=== PATIENT | female | born 1950 | race Hispanic/Latino ===

== ENCOUNTER 2017-04-27 10:46 | Emergency (ER) | payer MEDICARE, OTHER ==
[~2017-04-27] VITALS: Ht 157.5 cm; Wt 69.0 kg
[~2017-04-27 10:46] MED LIST: ADLT ASA LOW81 MG PO; CIPROFLOXACN500 MG PO; CYCLOBENZAPR10 MG PO; LIPITOR20 MG PO; LOSARTAN POT100 MG PO; METRONIDAZOL500 MG PO; PANTOPRAZOLE SO40 M1 PO; SIMVASTATIN20 MG PO; TRAMADOL HCL50 MG PO; ZOFRAN ODT4 MG PO
[2017-04-27] MEDS ORDERED: NAPROSYN500 MG PO (12:28)
[2017-04-27 12:44] VITALS: BP 159/83
== END 2017-04-27 12:45 | disposition home or self-care (01) ==
LOC: ED 10:46
DX: M19.011 Primary osteoarthritis, right shoulder (principal); M65.811 Other synovitis and tenosynovitis, right shoulder

== ENCOUNTER 2017-07-28 19:37 | Emergency (ER) | payer MEDICARE, MEDICAID ==
[~2017-07-28] VITALS: Ht 157.5 cm; Wt 70.6 kg
[~2017-07-28 19:37] MED LIST changes: +NAPROSYN500 MG PO
[2017-07-28] MEDS ORDERED: PERCOCET 5/325M1 TAB PO (20:41)
[2017-07-28] MEDS ORDERED: AMOXICILLIN500 MG PO (20:41)
[2017-07-28 21:00] VITALS: BP 138/80
== END 2017-07-28 21:00 | disposition home or self-care (01) ==
LOC: ED 19:37
DX: K08.89 Other specified disorders of teeth and supporting structures (principal); K02.9 Dental caries, unspecified; M25.48 Effusion, other site

== ENCOUNTER 2019-10-20 | Emergency (ER) | payer MEDICARE, MEDICAID ==
[~2019-10-20] MED LIST changes: +AMOXICILLIN500 MG PO; +PERCOCET 5/325M1 TAB PO
[2019-10-20] MEDS ORDERED: HYZAAR1 TA2 PO (19:42)
[2019-10-20] MEDS ORDERED: OMEPRAZOLE DR40 MG PO (19:42)
[2019-10-20] MEDS ORDERED: ROSUVASTATIN CA40 MG PO (19:42)
[2019-10-20] MEDS ORDERED: VOLTAREN - GENE75 MG PO (21:35)
== END 2019-10-20 21:42 | disposition home or self-care (01) ==
DX: M54.2 Cervicalgia (principal); I10 Essential (primary) hypertension; M19.90 Unspecified osteoarthritis, unspecified site

== ENCOUNTER 2019-10-29 | Emergency (ER) | payer MEDICARE, MEDICAID ==
[~2019-10-29] MED LIST changes: +HYZAAR1 TA2 PO; +OMEPRAZOLE DR40 MG PO; +ROSUVASTATIN CA40 MG PO; +VOLTAREN - GENE75 MG PO
[2019-10-29] MEDS ORDERED: CYCLOBENZAPR5 MG PO (18:50)
== END 2019-10-29 21:15 | disposition home or self-care (01) ==
DX: M47.812 Spondylosis without myelopathy or radiculopathy, cervical region (principal); I10 Essential (primary) hypertension
CPT/HCPCS: L0120

== ENCOUNTER 2022-04-01 09:42 | Observation (INO) | payer MEDICARE, MEDICAID ==
[2022-04-01] VITALS (12 sets, daily range): BP systolic 112–175; BP diastolic 52–105
[~2022-04-01] VITALS: Ht 154.9 cm; Wt 72.7 kg
[~2022-04-01 09:42] MED LIST changes: +CYCLOBENZAPR5 MG PO
--- NOTE | 2022-04-01 09:42 | NUR ---
PT AMBUALTORY TO ROOM DAUGHTER AT BEDSIDE
[2022-04-01 10:10] LABS: HEMATOCRIT 43.2 % (37.0-47.0); HEMOGLOBIN 13.8 g/dl (12.0-16.0); MEAN CORPUSCULAR HGB CONC 31.9 g/dL CAL (32.0-36.0); NEUT# 3.69 thou/uL (2.00-7.15); RED BLOOD COUNT 4.45 mill/uL (4.20-5.60); RED CELL DISTRI WIDTH 13.1 % (11.5-15.5)
[2022-04-01 10:19] LABS: MEAN CELL VOLUME 97.1 fL CALC (80.0-100.0)
[2022-04-01] MEDS ORDERED: FLEXERIL5 M1 PO (10:19)
[2022-04-01] MEDS ORDERED: DICLOFENAC SODI75 M1 PO (10:20)
[2022-04-01] MEDS ORDERED: LATANOPROST0.005 % OU (10:20)
--- NOTE | 2022-04-01 10:30 | NUR ---
Reassessment of patient completed. No distress noted.
[2022-04-01 10:53] LABS: ALBUMIN 3.9 g/dL (3.2-5.0); ALKALINE PHOSPHATASE 96 u/l (38-126); BILIRUBIN, TOTAL 0.7 mg/dL (0.0-1.4); BUN 18 mg/dL (8-23); BUN/CREATININE RATIO 17 (12-20 (CALC)); CHLORIDE 105 mmol/l (95-108); GFR FOR AFR.AMER. > 60 ML/MIN (>=60 (CALC)); GFR OTHER RACES 55 ML/MIN (>=60 (CALC)); POTASSIUM 3.5 mmol/l (3.5-5.1); SGOT/AST 33 u/l (9-36); TOTAL PROTEIN 7.4 g/dL (6.3-8.2)
[2022-04-01 10:54] LABS: ANION GAP 8 (6-22 (CALC)); CARBON DIOXIDE 29 mmol/l (22-30); SODIUM 138 mmol/l (137-146)
--- NOTE | 2022-04-01 11:30 | NUR ---
Reassessment of patient completed. No distress noted.
--- NOTE | 2022-04-01 12:30 | NUR ---
Reassessment of patient completed. No distress noted.
--- NOTE | 2022-04-01 13:45 | NUR ---
PT BROUGHT TO MED SURG 270. REPORT GIVEN AT BEDSIDE TO BOONE PALMER
[2022-04-01] MEDS ORDERED: HYDROCHLOROT25 MG PO (14:38)
[2022-04-01] MEDS ORDERED: METOPROLOL SUCC50 MG PO (14:39)
[2022-04-01] MEDS ORDERED: LIPITOR80 M1 PO (14:40)
[2022-04-01] MEDS ORDERED: ASPIRIN 81 LOW81 MG PO (14:41)
[2022-04-01] MEDS ORDERED: VITAMIN B-12500 MC1 PO (14:43)
[2022-04-01] MEDS ORDERED: VITAMIN D-31000 UNI1 PO (14:44)
--- NOTE | 2022-04-01 15:44 | NUR ---
PT ARRIVED ON UNIT @ 1355 TRANSPORTED VIA W/C BY ED STAFF. ALERT AND ORIENTED X 4, NO C/O DISCOMFORT AT THIS TIME, ORIENTED TO ROOM AND CALL MITCHELL, INFORMED/EDUCATED ON FALL PRECAUTIONS AND STATED UNDERSTANDING. BEDSIDE REPORT RECEIVED FROM ED STAFF MANUEL MONTGOMERY SETTLED IN BED, IMMEDIATE NEEDS ADDRESSED, WILL CONTINUE TO MONITOR.
--- NOTE | 2022-04-01 19:55 | NUR ---
PATIENT ALERT AND ORIENTED. KYRGYZ SPEAKING. FOOD COUNTER ATTENDANT PRESENT. ASSESSMENT COMPLETE. NO COMPLAINTS OF CHEST PAIN OR PAIN IN GENERAL. NO SIGNS OF DISTRESS. ABLE TO MAKE NEEDS KNOWN. BED IN LOW POSITION. CALL MITCHELL IN REACH.
--- NOTE | 2022-04-02 00:06 | NUR ---
PATIENT RESTING IN BED ON HER LEFT SIDE. NO COMPLAINTS OF CHEST PAIN. NO SIGNS OF DISTRESS NOTED. CALL MITCHELL REMAINS IN REACH.
[2022-04-02 00:25] VITALS: BP 136/50
--- NOTE | 2022-04-02 04:05 | NUR ---
PATIENT RESTING IN BED. NO COMPLAINTS VOICED AT THIS TIME. CALL LIGHT AND BELONGINGS WITHIN REACH. BED REMAINS IN LOW POSITION.
[2022-04-02 04:33] VITALS: BP 110/54
[2022-04-02 06:52] VITALS: BP 127/50
--- NOTE | 2022-04-02 07:00 | NUR ---
REPORT RECIEVED FROM MANAGER OF MERCHANDISINGSIDE SEAM ENVELOPE MACHINE OPERATOR
--- NOTE | 2022-04-02 07:39 | NUR ---
PT AWAKE UPON ENTERING ROOM. STATES NO FEELING OS CHEST PAIN/NV/SOB. STATES FEELING BETTER. IV 20RAC INFUSING IVF PER EMAR. ASSESSMENT ALLOWED. FAMILY MEMBER AT BEDSIDE. PT IS MAORI SPEAKING ONLY. A&OX3. FALL/SAFTEY PRECAUTION IN PLACE. CALL LIGHT WITHIN REACH.
[2022-04-02 10:05] VITALS: BP 125/56
--- NOTE | 2022-04-02 11:51 | NUR ---
Patient is screened for PT intervention and no needs are identified at this time
--- NOTE | 2022-04-02 12:31 | NUR ---
PT EATING LUNCH. NO DISTRESS NOTED. STATES NO NEEDS AT THIS TIME. FALL/SAFETY PRECAUTION IN PLACE. Call light within reach
[2022-04-02 14:50] VITALS: BP 122/68
--- NOTE | 2022-04-02 16:26 | NUR ---
Discharge instructions given. Patient verbalizes understanding of same. Discharged in stable condition via Wheelchair to Home with staff. All belongings sent with pt.
== END 2022-04-02 16:26 | disposition home or self-care (01) ==
LOC: ED 09:42 → ED-I 11:16 → ED 11:16 → MS2 11:24
PROVIDERS: Family Medicine; ADMIT Hospitalist; ATTEND Hospitalist
DX: R07.9 Chest pain, unspecified (principal); I10 Essential (primary) hypertension; Z91.11 Patient's noncompliance with dietary regimen; Z20.822 Contact with and (suspected) exposure to COVID-19
CPT/HCPCS: J1650

== ENCOUNTER 2022-06-09 10:11 | Emergency (ER) | payer MEDICARE, MEDICAID ==
[~2022-06-09] VITALS: Ht 154.9 cm; Wt 72.0 kg
[~2022-06-09 10:11] MED LIST changes: +ASPIRIN 81 LOW81 MG PO; +DICLOFENAC SODI75 M1 PO; +FLEXERIL5 M1 PO; +HYDROCHLOROT25 MG PO; +LATANOPROST0.005 % OU; +LIPITOR80 M1 PO; +METOPROLOL SUCC50 MG PO; +VITAMIN B-12500 MC1 PO; +VITAMIN D-31000 UNI1 PO
[2022-06-09 10:22] VITALS: BP 144/72
[2022-06-09 10:30] VITALS: BP 146/75
[2022-06-09 11:03] VITALS: BP 144/77
[2022-06-09 11:31] VITALS: BP 113/66
[2022-06-09 11:35] LABS: GFR FOR AFR.AMER. > 60 ML/MIN (>=60 (CALC)); GFR OTHER RACES > 60 ML/MIN (>=60 (CALC))
[2022-06-09 11:53] LABS: ALKALINE PHOSPHATASE 128 u/l (38-126); ANION GAP 15 (6-22 (CALC)); BUN 18 mg/dL (8-23); BUN/CREATININE RATIO 21 (12-20 (CALC)); CARBON DIOXIDE 29 mmol/l (22-30); CHLORIDE 101 mmol/l (95-108); CREATININE 0.8 mg/dL (0.5-1.0); GFR FOR AFR.AMER. > 60 ML/MIN (>=60 (CALC)); GFR OTHER RACES > 60 ML/MIN (>=60 (CALC)); POTASSIUM 4.2 mmol/l (3.5-5.1); SGOT/AST 43 u/l (9-36); SODIUM 141 mmol/l (137-146); TOTAL PROTEIN 8.7 g/dL (6.3-8.2)
[2022-06-09 11:55] LABS: HEMATOCRIT 44.9 % (37.0-47.0); HEMOGLOBIN 15.3 g/dl (12.0-16.0); IMMATURE GRANULOCYTES 0.2 % (0.0-5.0); MEAN CORPUSCULAR HGB 31.4 pG CALC (26.0-32.0); MEAN CORPUSCULAR HGB CONC 34.1 g/dL CAL (32.0-36.0); NEUT# 9.8 thou/uL (2.00-7.15); RED BLOOD COUNT 4.88 mill/uL (4.20-5.60); RED CELL DISTRI WIDTH 12.6 % (11.5-15.5)
[2022-06-09 11:59] LABS: ALBUMIN 4.9 g/dL (3.2-5.0)
[2022-06-09] MEDS ORDERED: MOTRIN400 MG/TAB PO ×2 (13:20→13:41)
[2022-06-09] MEDS ORDERED: TRAMADOL HYDROC50 M1 PO ×2 (13:20→13:41)
[2022-06-09] MEDS ORDERED: DOXY-CAPS100 MG PO ×2 (13:20→13:41)
== END 2022-06-09 13:50 | disposition home or self-care (01) ==
LOC: ED 10:11
PROVIDERS: Family Medicine
DX: M54.6 Pain in thoracic spine (principal); M54.50 Low back pain, unspecified; J18.9 Pneumonia, unspecified organism; I10 Essential (primary) hypertension; E78.00 Pure hypercholesterolemia, unspecified
CPT/HCPCS: Q9967

== ENCOUNTER 2023-05-15 05:40 | Observation (INO) | payer MEDICARE, MEDICAID ==
[2023-05-15] VITALS (25 sets, daily range): BP systolic 132–190; BP diastolic 57–93
[~2023-05-15] VITALS: Ht 154.9 cm; Wt 70.0 kg
[~2023-05-15 05:40] MED LIST changes: +DOXY-CAPS100 MG PO; +MOTRIN400 MG/TAB PO; +TRAMADOL HYDROC50 M1 PO
--- NOTE | 2023-05-15 05:42 | NUR ---
PT AMBULATED TO RM 14 W/ STEADY GAIT. DAUGHTERS BEDSIDE
--- NOTE | 2023-05-15 06:00 | NUR ---
PT VOMITED X 1. MD AWARE
[2023-05-15 06:20] LABS: BASO% 0.6 % (0-3); EOS% 7.4 % (0-8); HEMATOCRIT 44.9 % (37.0-47.0); HEMOGLOBIN 14.4 g/dl (12.0-16.0); MEAN CELL VOLUME 93.3 fL CALC (80.0-100.0); MEAN CORPUSCULAR HGB 29.9 pG CALC (26.0-32.0); MEAN CORPUSCULAR HGB CONC 32.1 g/dL CAL (32.0-36.0); MONO% 6.8 % (2-13); NEUT# 3.24 thou/uL (2.00-7.15); NEUT% 52.2 % (42-76); RED BLOOD COUNT 4.81 mill/uL (4.20-5.60); RED CELL DISTRI WIDTH 12.7 % (11.5-15.5)
[2023-05-15] MEDS ORDERED: HYDROXYCHLOR200 MG PO (06:27)
[2023-05-15] MEDS ORDERED: COZAAR50 MG PO (06:28)
[2023-05-15] MEDS ORDERED: CRESTOR5 MG PO (06:30)
--- NOTE | 2023-05-15 06:31 | NUR ---
PT RESTING IN BED. RESP EVEN AND UNLABORED. AWAKE AND ALERT. MEDICATED PER MD ORDERS FOR N/V AND DIZZINESS. DENIES PAIN. INFORMED PT AND FAMILY OF PLAN OF CARE AND WAIT TIME AND THEY VERBALIZED UNDERSTANDING. CALL LIGHT IN REACH.
[2023-05-15 06:50] LABS: ALBUMIN 4.1 g/dL (3.2-5.0); ALKALINE PHOSPHATASE 97 u/l (38-126); ANION GAP 11 (6-22 (CALC)); BILIRUBIN, TOTAL 0.6 mg/dL (0.02-1.3); BUN 21 mg/dL (8-23); BUN/CREATININE RATIO 23 (12-20 (CALC)); CARBON DIOXIDE 27 mmol/l (22-30); CHLORIDE 108 mmol/l (95-108); CREATININE 0.9 mg/dL (0.5-1.0); GFR FOR AFR.AMER. > 60 ML/MIN (>=60 (CALC)); GFR OTHER RACES > 60 ML/MIN (>=60 (CALC)); POTASSIUM 3.9 mmol/l (3.5-5.1); SGOT/AST 38 u/l (9-36); SODIUM 142 mmol/l (137-146); TOTAL PROTEIN 7.7 g/dL (6.3-8.2)
--- NOTE | 2023-05-15 07:05 | NUR ---
ASSUMED CARE OF THE PATIENT AT THIS TIME. PATIENT ASSITED TO THE BATHROOM FOR URINE SAMPLE. PATIENTS GAIT IS UNSTEADY. PATIENT STATES MEDICINE RECIEVED DIDN'T HELP WITH HER DIZZINESS.
--- NOTE | 2023-05-15 07:15 | NUR ---
NIH COMPLETED AT THIS TIME. PATIENT HAS DIFFICULTY WITH LEFT HAND, FINGER TO NOSE. PATIENT AWOKE THIS AM @4:00 AND UPON WAKING SHE STATES SHE WAS DIZZY. SN NOTED, LEFT EYE DRIFTS INWARD. DR. PRABAHKAR AT THE BEDSIDE TO ASSESS.
--- NOTE | 2023-05-15 08:50 | NUR ---
TELENEUROLOGIST DR. NASCIMENTO ( SPELLING IS PROBABLY WRONG) ASSESSED THE PATIENT GIVING HER AN NIH SCORE OF 1. HE ORDERED CTA AND MRI TO BE DONE. HE STATED HE THOUGHT IT WOULD BE POSTERIOR.
[2023-05-15 09:16] LABS: URINE BILIRUBIN - DIPSTICK Negative (NEGATIVE); URINE BLOOD DIPSTICK Trace-intact (NEGATIVE); URINE COLOR Yellow; URINE GLUCOSE - DIPSTICK Negative (NEGATIVE); URINE KETONE Negative (NEGATIVE); URINE LEUK ESTERASE Negative (NEGATIVE); URINE NITRITE - DIPSTICK Negative (Negative); URINE PH 6.5 (4.5-8.0); URINE PROTEIN - DIPSTICK Negative (NEG-TRACE); URINE UROBILINOGEN - DIPSTICK 0.2 E.U./dL (0.2)
[2023-05-15 09:57] LABS: GFR FOR AFR.AMER. > 60 ML/MIN (>=60 (CALC)); GFR OTHER RACES > 60 ML/MIN (>=60 (CALC))
--- NOTE | 2023-05-15 09:57 | NUR ---
PATIENT LAST SEEN NORMAL AT 11 PM ON 05/14/23 WHEN SHE WENT TO BED. PATIENT NORMALLY TAKES AN 81MG ASA DAILY BUT HASN'T ANY IN THE LAST 4 WEEKS. TELENEUROLOGY CONSULT ORDERED. PATIENT IN NO DISTRESS.
--- NOTE | 2023-05-15 10:30 | NUR ---
PATIENT RESTING. NO DISTRESS.
--- NOTE | 2023-05-15 11:00 | NUR ---
VERONICA PALMER GAVE AL RN ON MED-SURG VERBAL REPORT ON PATIENT. PATIENT TAKEN TO THE FLOOR BY SUSANNA PALMER.
--- NOTE | 2023-05-15 11:19 | NUR ---
PT ARRIVED TO FLOOR ACCOMPANIED BY RN. PT IS AOx4, AMBULATORY BUT DIZZY. NIH SCORE 2 UPON ARRIVAL. PT ORIENTED TO ROOM AND PLAN OF CARE. ALL SAFETY MEASURES IN PLACE.
--- NOTE | 2023-05-15 20:00 | NUR ---
RECEIVED REPORT FROM NURSE AL , PATIENT RESTING IN BED, FAMILY IN ROOM, PATIENT IV ON LAC G 20 PATENT FLUSHES WELL HOOKED ON TELEMETRY SR 64, DENIES PAIN AT THIS TIME, NIH 3, STIIL WITH MILD DIZZINESS, DUE MECLIZINE GIVEN, CALL LIGHT IN REACH.
[2023-05-16] VITALS (7 sets, daily range): BP systolic 106–169; BP diastolic 58–75
--- NOTE | 2023-05-16 | NUR ---
PATIENT RESTING IN BED, DAUGHTER IN ROOM, BREATHING UNLABORED, NIH 3, NOT IN DISTRESS, CALL LIGHT IN REACH.
--- NOTE | 2023-05-16 04:24 | NUR ---
PATIEN RESTING IN BED, NO DSICOMFORTS NOTED AT THIS TIME, BREATHING EVEN UNLABORED, EQUAL MODERATE CUTTER BRAKE LINING, CALL LIGHT IN REACH.
[2023-05-16 05:20] LABS: ALBUMIN 3.6 g/dL (3.2-5.0); ALKALINE PHOSPHATASE 85 u/l (38-126); ANION GAP 9 (6-22 (CALC)); BILIRUBIN, TOTAL 0.6 mg/dL (0.02-1.3); BUN 17 mg/dL (8-23); BUN/CREATININE RATIO 19 (12-20 (CALC)); CALCULATED LDLCHOLESTEROL 53 mg/dL (62-129 (CALC)); CARBON DIOXIDE 27 mmol/l (22-30); CHLORIDE 108 mmol/l (95-108); CHOLESTEROL HDL RATIO 2.5 (<4.4 (CALC)); CREATININE 0.9 mg/dL (0.5-1.0); GFR FOR AFR.AMER. > 60 ML/MIN (>=60 (CALC)); GFR OTHER RACES > 60 ML/MIN (>=60 (CALC)); HDL CHOLESTEROL 52 mg/dL (39.0-59.0); POTASSIUM 4.1 mmol/l (3.5-5.1); SGOT/AST 31 u/l (9-36); SODIUM 141 mmol/l (137-146); TOTAL PROTEIN 6.4 g/dL (6.3-8.2); TOTAL TRIGLYCERIDES 124 mg/dl (0-149); VLDL CHOLESTROL 25 mg/dl (0-48 (CALC))
[2023-05-16 05:22] LABS: BASO% 0.9 % (0-3); EOS% 7.2 % (0-8); HEMATOCRIT 41.1 % (37.0-47.0); HEMOGLOBIN 13.2 g/dl (12.0-16.0); IMMATURE GRANULOCYTES 0.2 % (0.0-5.0); LYMPH% 36.4 % (15-41); MEAN CELL VOLUME 93.4 fL CALC (80.0-100.0); MEAN CORPUSCULAR HGB CONC 32.1 g/dL CAL (32.0-36.0); MONO% 6.9 % (2-13); NEUT# 3.08 thou/uL (2.00-7.15); NEUT% 48.4 % (42-76); RED BLOOD COUNT 4.4 mill/uL (4.20-5.60)
[2023-05-16 05:27] LABS: TOTAL CHOLESTEROL 130 mg/dl (0-199)
--- NOTE | 2023-05-16 07:00 | NUR ---
PT RESTING IN BED WITH EYES CLOSED. BEDSIDE REPORT RECEIVED FROM SPENCER MCMAHON. ALL SAFETY MEASURES IN PLACE. VSS. PT FAMILY AT BEDSIDE.
--- NOTE | 2023-05-16 08:00 | NUR ---
pt ate 100% and drank 554 ml this am for breakfast. show card writer stuck in chart so cant document it.
--- NOTE | 2023-05-16 12:00 | NUR ---
pt still eating at this time.
[2023-05-16] MEDS ORDERED: ADLT ASA LOW81 MG PO (17:42)
[2023-05-16] MEDS ORDERED: MECLIZINE25 MG PO (17:43)
== END 2023-05-16 18:29 | disposition home or self-care (01) ==
LOC: ED 05:40 → ED-I 09:50 → ED 10:08 → MS2 10:09
PROVIDERS: Family Medicine; Nurse Practitioner Family; ADMIT Student in an Organized Health Care Education/Training Program; ATTEND Student in an Organized Health Care Education/Training Program
DX: R42 Dizziness and giddiness (principal); I10 Essential (primary) hypertension; E78.5 Hyperlipidemia, unspecified; M06.9 Rheumatoid arthritis, unspecified; H54.62 Unqualified visual loss, left eye, normal vision right eye; Z79.899 Other long term (current) drug therapy; T39.016A Underdosing of aspirin, initial encounter; Z91.128 Patient's intentional underdosing of medication regimen for other reason
CPT/HCPCS: A9579; Q9967

== ENCOUNTER 2024-11-05 08:27 | Emergency (ER) | payer MEDICARE, MEDICAID ==
[~2024-11-05] VITALS: Ht 154.9 cm; Wt 73.2 kg
[~2024-11-05 08:27] MED LIST changes: +COZAAR50 MG PO; +CRESTOR5 MG PO; +DECADRON4 MG PO; +HYDROXYCHLOR200 MG PO; +MECLIZINE25 MG PO; +MITIGARE0.6 MG PO; +NAPROXEN500 MG PO; +PROTONIX40 M2 PO
[2024-11-05 08:35] VITALS: BP 137/83
[2024-11-05 08:46] VITALS: BP 137/70
[2024-11-05 09:00] VITALS: BP 138/71
[2024-11-05 09:15] VITALS: BP 112/66
[2024-11-05] MEDS ORDERED: AMOX/K CLAV875 M1 PO (09:23)
[2024-11-05 09:30] VITALS: BP 131/69
== END 2024-11-05 09:44 | disposition home or self-care (01) ==
LOC: ED 08:27
DX: J32.9 Chronic sinusitis, unspecified (principal); I10 Essential (primary) hypertension; E78.00 Pure hypercholesterolemia, unspecified; Z20.822 Contact with and (suspected) exposure to COVID-19